=== PATIENT | male | born 2005 | race Caucasian/White ===

== ENCOUNTER 2024-01-30 19:08 | Emergency (ER) | payer OTHER ==
[2024-01-30 19:41] VITALS: TEMP 96.8
[2024-01-30] MEDS ORDERED: MORPHINE SULFATE 4 MG INJ ONE (19:53)
[2024-01-30] MEDS ORDERED: Zofran 4 MG/2 ML VIAL ONE (19:53)
[2024-01-30] MEDS ORDERED: Sodium Chloride 0.9% 1000 ML 1,000 ML ONE (19:53)
[2024-01-30] MEDS: Zofran 4 MG/2 ML VIAL IV ONE (19:54)
[2024-01-30] MEDS: Sodium Chloride 0.9% 1000 ML 1,000 ML IV STA (19:55)
[2024-01-30] MEDS: MORPHINE SULFATE 4 MG INJ IV ONE (19:55)
[2024-01-30 20:11] LABS: BASOPHIL % 0.4 % (0.0-0.4); Basophil (Absolute #) 0.04 x10^3/uL (0-0.4); Eosinophil % 1.1 % (0.00-5.0); Eosinophil (Absolute #) 0.12 x10^3/uL (0-0.5); Hematocrit 45.1 % (42-50); Hemoglobin 15.6 g/dL (12.5-18.0); IMMATURE GRAN # 0.05 x10^3u/L (0.00-0.03); IMMATURE GRAN % 0.5 % (0.00-0.4); Lymphocyte (Absolute #) 3.52 x10^3/uL (1.0-4.6); Lymphocytes % 32.4 % (24.0-44.0); Mean Cell Volume 84.9 fL (78-100); Mean Corpuscular Hemoglobin 29.4 pg (26-32); Mean Corpuscular Hgb Concent. 34.6 g/dL (32-36); Mean Platelet Volume 10.2 fL (7.5-11.0); Monocyte (Absolute #) 0.83 x10^3/uL (0.0-1.3); Monocytes % 7.6 % (0.0-12.0); Platelet Count 318 x10^3/uL (150-450); Red Blood Count 5.31 x10^6/uL (4.1-5.6); Red Cell Distribution Width 11.9 % (11.5-14.0); White Blood Count 10.9 x10^3/uL (4.0-10.5)
[2024-01-30 20:20] LABS: Appearance Clear (Clear); Bacteria None Seen /HPF (None Seen); Bilirubin Negative (Negative); Blood Negative (Negative); Epithelial Cells None Seen /HPF (None Seen); Glucose, Urine Negative (Negative); Hyaline Casts NONE SEEN /LPF (0-2); Ketones Negative (Negative); Leukocyte Esterase Negative (Negative); Nitrite Negative (Negative); Protein,Urine Dip Negative (Negative); RBC 0-2 /HPF (0-5); Urobilinogen 0.2 mg/dL (0.2); WBC 0-2 /HPF (0-5)
[2024-01-30 20:27] LABS: ADD URINE CULTURE? NO (NO)
[2024-01-30 21:03] LABS: ALBUMIN 4.9 g/dL (3.5-5.0); ANION GAP 17.6 MEQ/L (5-15); BILIRUBIN,TOTAL 0.7 mg/dL (0.2-1.3); Calcium 9.9 mg/dL (8.4-10.2); EST GLOMERULAR FILTRATION RATE 110.5 ML/MIN; Potassium 4.3 mmol/L (3.5-5.1); Total Protein 8.5 g/dL (6.3-8.2)
[2024-01-30 21:20] VITALS: PULSE 93; RESP 18; O2SAT 95
--- NOTE | 2024-01-30 21:55 | ERPHSYRPT ---
- History of Present Illness Time Seen by Provider: 01/30/24 19:25 Historian: patient Exam Limitations: no limitations Patient Subjective Stated Complaint: Abdominal pain Triage Nursing Assessment: Patient ambulated back to ED and transferred self to bed. Patient A+O X3. Patient's skin pink, warm and dry. Patient complains of abdominal pain 9/10. Patient had his gallbladder out on December 05 in [facility] and was released from [facility] on January 19. Patient states Saturday he got out of his truck at work and felt and pop and felt like he got stabbed. Patient states the pain got worse and he went to ER in [place] and was prescribed Toradol and P epcid and was told to follow up with surgeon and PCP. Patient states this evening he was mowing the yard when felt a pop and coughed and sneezed with blood coming from mouth and nose with pain getting worse. Patient complains of nausea and diarrhea. 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 Patient felt as something stabbed in his right side of abdomen and brought him down to his knees . Reports some nausea but no vomiting. He was seen at [facility] yesterday with negative workup done and was discharged. Patient again was mowing today when he sneezed and cough and felt a popping sensation again. He also noticed small amount of blood with sneezing. Denies any difficulty breathing. # Nausea but no vomiting. Currently patient rates 7-8/10 intensity pain. Does have some loose stools since yesterday. Allergies/Adverse Reactions: amoxicillin Allergy (Verified 01/30/24 19:27) clavulanic acid [From Augmentin] Allergy (Verified 01/30/24 19:27) Penicillins Allergy (Verified 01/30/24 19:27) pollen extracts Allergy (Verified 01/30/24 19:27) Cephalosporins Adverse Reaction (Verified 01/30/24 19:27) Hx Influenza Vaccination/Date Given: Yes Hx Pneumococcal Vaccination/Date Given: No Immunizations Up to Date: Yes Travel Risk - International Travel Have you traveled outside of the country in past 3 weeks: No - Emerging Infectious Disease Are you exhibiting symptoms associated with any current EIDs: No - Review of Systems Constitutional: No Symptoms Eyes: No Symptoms Ears, Nose, & Throat: Nose Congestion Respiratory: No Symptoms Cardiac: No Symptoms Abdominal/Gastrointestinal: Abdominal Pain, Nausea, Diarrhea Genitourinary Symptoms: No Symptoms Musculoskeletal: No Symptoms Skin: No Symptoms Neurological: No Symptoms Psychological: No Symptoms Endocrine: No Symptoms Hematologic/Lymphatic: No Symptoms Immunological/Allergic: No Symptoms - Past Medical History Pertinent Past Medical History: Yes Neurological History: No Pertinent History ENT History: No Pertinent History Cardiac History: No Pertinent History Respiratory History: No Pertinent History Endocrine Medical History: Other Musculoskeletal History: No Pertinent History GI Medical History: No Pertinent History History: No Pertinent History Psycho-Social History: No Pertinent History Male Reproductive Disorders: No Pertinent History Other Medical History: Fatty liver, pre diabetic - Past Surgical History Past Surgical History: Yes Neuro Surgical History: No Pertinent History Cardiac: No Pertinent History Respiratory: No Pertinent History Gastrointestinal: Cholecystectomy Genitourinary: No Pertinent History Musculoskeletal: No Pertinent History Male Surgical History: No Pertinent History - Social History Smoking Status: Never smoker Exposure to second hand smoke: Yes Drug Use: none - Nursing Vital Signs Nursing Vital Signs: Initial Vital Signs Temperature 96.8 F 01/30/24 19:32 Pulse Rate 97 H 01/30/24 19:32 Respiratory Rate 18 01/30/24 19:32 Blood Pressure 147/87 01/30/24 19:32 O2 Sat by Pulse Oximetry 97 01/30/24 19:32 Pain Scale Pain Intensity 9 - Physical Exam General Appearance: no apparent distress, alert Eye Exam: PERRL/EOMI Ears, Nose, Throat Exam: normal ENT inspection, TMs normal, pharynx normal, moist mucous membranes Neck Exam: normal inspection, non-tender, supple, full range of motion Respiratory Exam: normal breath sounds, lungs clear Cardiovascular Exam: regular rate/rhythm, normal heart sounds Gastrointestinal/Abdomen Exam: soft, normal bowel sounds, tenderness (Right upper quadrant/right flank), guarding Back Exam: normal inspection Extremity Exam: normal inspection, normal range of motion, pelvis stable Neurologic Exam: alert, oriented x 3, cooperative, gas torch solderer II-XII nml as tested Skin Exam: normal color SpO2 Interpretation: normal SpO2: 95 O2 Delivery: Room Air Ordered Tests: Active Orders 24 hr Category Date Time Status IV Insertion STAT Care 01/30/24 19:50 Active NPO (ED) STAT Care 01/30/24 19:50 Active ABDOMEN AND PELVIS W CONTRAST [CT] Stat Exams 01/30/24 19:51 Taken CBC W DIFF Stat Lab 01/30/24 20:00 Completed CMP Stat Lab 01/30/24 20:00 Completed LIPASE Stat Lab 01/30/24 20:00 Completed UA W/RFX UR CULTURE Stat Lab 01/30/24 19:52 Completed Medication Summary Discontinued Medications Generic Name Dose Route Start Last Admin Trade Name Nhan PRN Reason Stop Dose Admin Sodium Chloride 1,000 mls @ 999 mls/hr 01/30/24 19:50 01/30/24 21:08 Sodium Chloride 0.9% 1000 Ml IV 01/30/24 20:50 Infused .Q1H1M STA Infusion Sodium Chloride Confirm 01/30/24 19:53 Sodium Chloride 0.9% 1000 Ml Administered 01/30/24 19:54 Dose 1,000 mls @ ud .ROUTE .STK-MED ONE Morphine Sulfate 4 mg 01/30/24 19:50 01/30/24 19:55 Morphine Sulfate 4 Mg/Ml Injection IV 01/30/24 19:51 4 mg STAT ONE Administration Morphine Sulfate Confirm 01/30/24 19:53 Morphine Sulfate 4 Mg/Ml Injection Administered 01/30/24 19:54 Dose 4 mg .ROUTE .STK-MED ONE Ondansetron HCl 4 mg 01/30/24 19:50 01/30/24 19:54 Ondansetron Hcl 4 Mg/2 Ml Vial IV 01/30/24 19:51 4 mg STAT ONE Administration Ondansetron HCl Confirm 01/30/24 19:53 Ondansetron Hcl 4 Mg/2 Ml Vial Administered 01/30/24 19:54 Dose 4 mg .ROUTE .STK-MED ONE Lab/Rad Data: Laboratory Result Diagrams 01/30/24 20:00 01/30/24 20:00 Laboratory Results 01/30/24 01/30/24 01/30/24 Range/Units 20:00 20:00 19:52 WBC 10.9 H (4.0-10.5) x10^3/uL RBC 5.31 (4.1-5.6) x10^6/uL Hgb 15.6 (12.5-18.0) g/dL Hct 45.1 (42-50) % MCV 84.9 (78-100) fL MCH 29.4 (26-32) pg MCHC 34.6 (32-36) g/dL RDW 11.9 (11.5-14.0) % Plt Count 318 (150-450) x10^3/uL MPV 10.2 (7.5-11.0) fL Gran % 58.0 (36.0-66.0) % Immature Gran % (Auto) 0.5 H (0.00-0.4) % Nucleat RBC Rel Count 0.0 (0.00-0.1) % Eos # (Auto) 0.12 (0-0.5) x10^3/uL Immature Gran # (Auto) 0.05 H (0.00-0.03) x10^3u/L Absolute Lymphs (auto) 3.52 (1.0-4.6) x10^3/uL Absolute Monos (auto) 0.83 (0.0-1.3) x10^3/uL Absolute Nucleated RBC 0.00 (0.00-0.01) x10^3u/L Lymphocytes % 32.4 (24.0-44.0) % Monocytes % 7.6 (0.0-12.0) % Eosinophils % 1.1 (0.00-5.0) % Basophils % 0.4 (0.0-0.4) % Absolute Granulocytes 6.30 (1.4-6.9) x10^3/uL Basophils # 0.04 (0-0.4) x10^3/uL Sodium 142 (135-145) mmol/L Potassium 4.3 (3.5-5.1) mmol/L Chloride 106 (98-107) mmol/L Carbon Dioxide 23 (22-30) mmol/L Anion Gap 17.6 H (5-15) MEQ/L BUN 17 (9-20) mg/dL Creatinine 1.00 (0.66-1.25) mg/dL Estimated GFR 110.5 ML/MIN Glucose 94 (74-106) mg/dL Calcium 9.9 (8.4-10.2) mg/dL Total Bilirubin 0.70 (0.2-1.3) mg/dL AST 75 H (17-59) U/L ALT 215 H (0-50) U/L Alkaline Phosphatase 85 (38-126) U/L Serum Total Protein 8.5 H (6.3-8.2) g/dL Albumin 4.9 (3.5-5.0) g/dL Lipase 121 (23-300) U/L Urine Color Yellow (Yellow) Urine Appearance Clear (Clear) Urine pH 5.0 (4.6-8.0) Ur Specific [place] 1.020 (1.005-1.030) Urine Protein Negative (Negative) Urine Glucose (UA) Negative (Negative) mg/dL Urine Ketones Negative (Negative) Urine Blood Negative (Negative) Urine Nitrite Negative (Negative) Urine Bilirubin Negative (Negative) Urine Urobilinogen 0.2 (0.2) mg/dL Ur Leukocyte Esterase Negative (Negative) U Hyaline Cast (Auto) NONE SEEN (0-2) /LPF Urine Microscopic RBC 0-2 (0-5) /HPF Urine Microscopic WBC 0-2 (0-5) /HPF Ur Epithelial Cells None Seen (None Seen) /HPF Urine Bacteria None Seen (None Seen) /HPF Urine Culture Reflexed NO (NO) - Progress Progress: improved, re-examined Progress Note: 01/30/24 21:51 19 years old with recent cholecystectomy is evaluated for right upper quadrant/flank area pain for the last 3 days after feeling a popping sensation with stabbing pain. Patient has nausea but no vomiting. He has a negative acute abdomen workup done at [facility] yesterday. It happened again today. Patient has tenderness right upper quadrant, given fluid and symptomatic treatment, on reevaluation his pain is almost completely resolved. Has normal white count, fairly unremarkable chemistries, does have elevated liver enzyme and patient is known to have fatty liver. CT abdomen pelvis with contrast is negative for any acute intra-abdominal pelvic findings except has fatty liver changes. Possible patient has some adhesions related pain. He is advised to take Tylenol as needed along with Protonix as he might have some element of gastritis. And outpatient follow-up. Discussed signs symptoms of worsening needing return to ER which he seems understanding. 01/30/24 21:56 Counseled pt/family regarding: lab results, diagnosis, need for follow-up, rad results Medical Desision Making - Diagnostic Testing Diagnostic test were ordered, analyzed, and reviewed by me: Yes Radiological Interpretation: Reviewed by me - Risk of complications The pt has a mod risk of morbidity or mortality based on: Need for prescription drug management - Departure Departure Disposition: Home Clinical Impression: Right-sided abdominal pain, Fatty liver, Elevated transaminase level Condition: Stable Critical Care Time: No Referrals: AMRIK TENA NP [Primary Care Provider] - Follow up with PCP 1 day Instructions: Severe Abdominal Pain, Adult (DC) Additional Instructions: Take Tylenol as needed. Follow-up with your primary care for reevaluation keep appointment with your general surgeon. Return to ER for any worsening. Prescriptions: PANTOPRAZOLE 40 mg Tablet [Protonix 40MG Tablet] 40 mg PO QAM #30 tab
[2024-01-30 22:01] VITALS: BP 140/74
--- NOTE | 2024-01-31 08:58 | XRAY ---
Indication: Right lower quadrant pain. Multiple contiguous axial images obtained through the abdomen and pelvis using 80 cc Isovue 370 contrast. Comparison: None Lung bases clear. Heart not enlarged. Small amount of gastroesophageal reflux. Noncontrasted stomach and bowel loops appear nonobstructed with normal appendix. Mild diffuse fatty liver and tiny nonspecific right adrenal calcifications. Previous cholecystectomy. No free fluid/air. Remaining liver, pancreas, spleen, adrenal glands, kidneys, ureters, bladder, and aorta are unremarkable. No pathologic retroperitoneal lymphadenopathy. Osseous structures intact. No ventral or inguinal hernias. Impression: 1. Fatty liver, GERD, and tiny nonspecific right adrenal calcifications. 2. Remaining CT abdomen/pelvis with contrast exam is negative.
== END 2024-01-30 22:11 | disposition home or self-care (01) ==
LOC: ED 19:08
DX: R10.11 Right upper quadrant pain (principal); R11.0 Nausea; R19.7 Diarrhea, unspecified; K76.0 Fatty (change of) liver, not elsewhere classified; R79.89 Other specified abnormal findings of blood chemistry
CPT/HCPCS: 36000; 36415; 74177; 80053; 81001; 83690; 85025; 96360; 96374; 96375; 99284; J2270; J2405